=== PATIENT | male | born 1975 | race Caucasian/White ===

== ENCOUNTER 2016-12-19 09:56 | Emergency (ER) | payer MEDICARE | END 2016-12-19 11:15 | disposition home or self-care (01) | LOC: D.ER 09:56 | DX: S83.92XA Sprain of unspecified site of left knee, initial encounter (principal); X58.XXXA Exposure to other specified factors, initial encounter; Y93.89 Activity, other specified; Y92.89 Other specified places as the place of occurrence of the external cause; F17.200 Nicotine dependence, unspecified, uncomplicated ==

== ENCOUNTER 2017-01-05 09:23 | Day surgery (SDC) | payer MEDICARE ==
[~2017-01-05] VITALS: Ht 170.2 cm; Wt 70.3 kg
[~2017-01-05 09:23] MED LIST: ACETAMINOPHEN500 M1 PO; IBUPROFEN600 MG PO
[2017-01-05 12:28] VITALS: BP 119/85; Ht 170.2 cm; Wt 70.3 kg
[2017-01-05] MEDS ORDERED: HYDROCODONE-APA1 TAB PO (14:52)
--- NOTE | 2017-01-05 15:35 | NUR ---
UPON PT WAKING UP, BECAME BELIGERANT AND UNCOOPERATIVE. REFUSED TO TAKE OXYGEN MASK OFF, DEMANDED SURGEON AND OR STAFF TO COME IN AND SPEAK WITH HIM. ATTEMPTED TO EXPLAIN TO PT THAT DR JOSEPH WAS ALREADY IN SURGERY AND UNABLE TO TALK TO HIM AT THIS TIME. EXPLAINED TO PT THAT IF WE COULD TAKE HIS OXYGEN MASK AND MONITOR OFF THEN HE COULD GO BACK TO HIS ROOM AND SEE HIS . PT THEN SAID HE WAS GETTING UP AND WALKING OUT. EXPLAINED TO PT THAT HE JUST HAD SURGERY AND DID NOT NEED TO GET OOB. PT THEN GOT MORE BELIGERANT AND TOOK ALL MONITORS OFF, AND GOT OOB. ASSISTED THE CHARGE NURSE IN STABALIZING PT TO PREVENT HIM FROM FALLING BY PLACING HIM IN A ROLLING OFFICE CHAIR. PT WAS THEN DISCHARGED FROM RECOVERY WITH ASSISTANCE OF CHARGE NURSE AND ESCORTED BACK TO OUTPT DEPARTMENT.
--- NOTE | 2017-01-05 17:15 | NUR ---
1645--IV DC'D, PT UP TO DRESS. KINGSLEY FREEMAN [id number]--DISCHARGE INSTRUCTIONS GIVEN, PT VERBALIZES UNDERSTANDING. PT OFF UNIT VIA WC. KINGSLEY FREEMAN
== END 2017-01-05 17:00 | disposition home or self-care (01) ==
LOC: D.OPS 09:23 → D.PAN 13:30 → D.OPS 13:30
DX: S83.282A Other tear of lateral meniscus, current injury, left knee, initial encounter (principal); S83.242A Other tear of medial meniscus, current injury, left knee, initial encounter; X58.XXXA Exposure to other specified factors, initial encounter; K21.9 Gastro-esophageal reflux disease without esophagitis; Z01.812 Encounter for preprocedural laboratory examination